=== PATIENT | female | born 1955 | race Caucasian/White ===

== ENCOUNTER 2017-01-02 06:54 | Day surgery (SDC) | payer OTHER ==
[2016-12-29 11:01] VITALS: BMI 21.3
[~2017-01-02 06:54] MED LIST: LACTATED RINGERS 1,000 ML IV SCH; LIDOCAINE 1% 20 ML VIAL (10MG/ML) FOR IV START INTRADERMA PRN
[2017-01-02 07:17] VITALS: TEMP 96.9
[2017-01-02] MEDS ORDERED: MIDAZOLAM 2 MG/2 ML VIAL ONE (07:31)
[2017-01-02] MEDS ORDERED: LIDOCAINE 1% INJ 10MG/ML (20 ML MDV) ONE (07:31)
[2017-01-02] MEDS ORDERED: PROPOFOL 10 MG/ML 20 ML VIAL IV ONE (07:31)
--- NOTE | 2017-01-02 08:04 | P.PCN ---
Date of Procedure: 01/02/17 Preoperative Diagnosis: Change in bowel habits Postoperative Diagnosis: Extremely tortuous sigmoid colon, diverticuli, inflammatory changes near diverticular orifices questionable hyperplastic polyps, internal hemorrhoids Procedure(s) Performed: Colonoscopy with biopsy of distal sigmoid colon Anesthesia: MAC Surgeon: Mecca Cunningham Estimated Blood Loss (ml): 0 IV fluids (ml): 300 Pathology: other (Biopsy of distal sigmoid colon questionable polyp) Condition: stable Disposition: PACU Indications for Procedure: Change in bowel habits Operative Findings: Tortuous redundant sigmoid colon, diverticuli, internal hemorrhoids, questionable mucosal change in her diverticular orifices probable Description of Procedure: Patient was taken to the endoscopy suite and following sedation rectal exam was performed. Patient was noted to have good sphincter tone no masses. Colonoscope was passed through the anus into the rectum. Was passed through the sigmoid colon up to the splenic flexure. The sigmoid colon was tortuous and redundant. Was passed through the transverse colon hepatic flexure right colon down to the area of the cecum. Confirmation of the cecum was obtained identifying the ileocecal valve as well as the appendiceal orifice. Approximately 6 minutes were taken to withdraw the scope from the cecum to the rectum. Circumferential observation of the mucosa did not reveal any lesions of concern in the cecum or right colon. No lesions of concern were noted in the transverse colon. No lesions of concern were noted in the left colon. The sigmoid colon there were scattered diverticuli with what appeared to be some inflammatory-like changes near the area of the diverticular orifices. A cold biopsy was obtained of one of these areas. The scope was brought down into the rectum where it was retroflexed and internal hemorrhoids were identified. Impression/plan: 1. Tortuous redundant sigmoid colon 2. Internal hemorrhoids 3. Diverticuli 4. Questionable mucosal changes in the area of the sigmoid colon cold biopsy obtained Plan: 1. Conservative management of diverticuli 2. Conservative management of internal hemorrhoids 3. Await results of pathology and further recommendations to follow this Depending on results of biopsy most likely repeat scope in 7-10 years.
[2017-01-02 08:05] VITALS: RESP 16
--- NOTE | 2017-01-02 08:05 | P.DS ---
Providers Attending physician: Mecca Cunningham Primary care physician: Marty Sheridan Plan - Discharge Summary Discharge Medication List Aspirin [Adult Low Dose Aspirin EC] 81 mg PO DAILY 12/29/16 [History] Atorvastatin [Lipitor] 20 mg PO HS 12/29/16 [History] Calcium Carbonate/Vitamin D3 [Calcium 500-Vit D3 600 Tablet] 1 each PO DAILY [History] Levothyroxine Sodium [Synthroid] 88 mcg PO DAILY 12/29/16 [History] Multivit-Min/FA/Lycopene/Lut [Centrum Silver Tablet] 1 each PO DAILY 12/29/16 [ History] Follow up Appointment(s)/Referral(s): Mecca Cunningham MD [STAFF PHYSICIAN] - As Needed Patient Instructions/Handouts: *[facility] - (Anesthesia) Endoscopy Discharge Instructions, Colonoscopy (GEN) Activity/Diet/Wound Care/Special Instructions: Conservative management of diverticuli and internal hemorrhoids Discharge Disposition: HOME SELF-CARE
[2017-01-02 08:16] VITALS: BP 135/80; PULSE 62
== END 2017-01-02 09:25 | disposition home or self-care (01) ==
LOC: ORWHC2ENDO 06:54
PROVIDERS: ATTEND Surgery
DX: K57.30 Diverticulosis of large intestine without perforation or abscess without bleeding (principal); K63.89 Other specified diseases of intestine; Q43.8 Other specified congenital malformations of intestine; Z87.891 Personal history of nicotine dependence; K64.8 Other hemorrhoids; I25.10 Atherosclerotic heart disease of native coronary artery without angina pectoris; I10 Essential (primary) hypertension; Z95.5 Presence of coronary angioplasty implant and graft; E07.9 Disorder of thyroid, unspecified; Z79.82 Long term (current) use of aspirin; Z79.899 Other long term (current) drug therapy; Z88.2 Allergy status to sulfonamides
CPT/HCPCS: 88305; 45380; J2250; J2001; J2704